=== PATIENT | female | born 1990 | race Hispanic/Latino ===

== ENCOUNTER 2018-08-09 19:34 | Emergency (ER) | payer MEDICARE ==
[~2018-08-09] VITALS: Ht 157.5 cm; Wt 74.8 kg
[2018-08-09] MEDS ORDERED: ONDANSETRON HCL 4 MG ORAL DISINTEGRATING TAB PO ONE (20:00)
== END 2018-08-09 20:39 | disposition home or self-care (01) ==
LOC: FSED 19:34
DX: R50.9 Fever, unspecified (principal); R05 Cough; J11.1 Influenza due to unidentified influenza virus with other respiratory manifestations; K52.9 Noninfective gastroenteritis and colitis, unspecified; J31.0 Chronic rhinitis
CPT/HCPCS: 87400; 99283; Q0162